=== PATIENT | female | born 1960 | race Hispanic/Latino ===

== ENCOUNTER 2024-08-28 21:57 | Inpatient (IN) | payer BC ==
[~2024-08-28] VITALS: Ht 154.9 cm; Wt 58.1 kg
--- NOTE | 2024-08-28 22:21 | ERN ---
General Chief Complaint: Chest Pain Stated Complaint: SOB,CHEST PAINS,VOMITTING,NUMBNESS Time Seen by MD: 21:57 Source: patient History of Present Illness Initial Comments Patient is a 64-year-old female recently diagnosed with the flu. She states he is coming in because she was having shortness of breath chest pressure began shortly after starting her Tamiflu. Patient also states that she has had fever and chills in his here for further evaluation. Allergies: Coded Allergies: No Known Allergies (Unverified Allergy, Unknown, 08/28/24) Past Medical History Past Medical History: High Cholesterol, Hypertension Past Surgical History: Hysterectomy, Cholecystectomy ROS Dictation CONSTITUTIONAL: No chills, no fever, no weakness, no diaphoresis, no malaise. HEAD/FACE: No signs of trauma. EENT: No eye pain, no blurred vision, no tearing, no double vision, no ear pain, no ear discharge, no nose pain, no nasal congestion, no throat pain, no throat swelling, no mouth pain. RESPIRATORY: cough, no orthopnea, SOB, no stridor, no wheezing. CARDIOVASCULAR: No chest pain, no edema, no palpitations, no syncope. GASTROINTESTINAL/ABDOMINAL: No abdominal pain, no constipation, no diarrhea, no nausea, no vomiting. GENITOURINARY: No abnormal discharge, no dysuria, no frequent urination, no hematuria. No complaints of pain in the genitals. MUSCULOSKELETAL: No back pain, no gout, no joint pain, no joint swelling, no muscle pain, no muscle stiffness, no neck pain. INTEGUMENTARY: No change in color, no change in hair/nails, no dryness, no lesion, no lumps, no rash. NEUROLOGICAL/PSYCH: No anxiety, not depressed, no emotional problem, no headache, no numbness, no pre-existing deficit, no history of seizures, no tremors, no weakness. HEMATOLOGIC/LYMPHATIC: Not anemic, no history of blood clots, no apparent bleeding, no bruising, glands not swollen. All Systems Negative, Except as Noted. Physical Exam Physical Exam Dictation VITAL SIGNS: Reviewed. GENERAL APPEARANCE: Alert, oriented x3, no acute distress, obese. HEAD AND FACE: Non-traumatic. EYES: PERRL, pink conjunctivas, eyelid no trauma, anterior chamber clear. EARS: Pinnas intact and no signs of trauma or erythema. Ear canals clear and no discharge. TMs no erythema. NOSE: No discharge, no bleeding. OROPHARYNX: Mouth normal, teeth no caries, tongue pink. Pharynx clear, no erythema. Tonsils no exudates, no abscesses noted. Mucous membrane moist. NECK: Supple, non-tender, no thyromegaly, no masses, no JVD, no bruits. BREAST: Deferred. CHEST: No tenderness, no crepitus, no paradoxical movement, no retractions. LUNGS: Clear, well-ventilated, symmetric, no rales, no wheezing, no rhonchi, no stridor, good breath sounds bilaterally. HEART: Regular rate, regular rhythm, no murmur, no gallops. VASCULAR: No peripheral edema. ABDOMEN: Soft, positive bowel sounds, nondistended, no guarding, nontender, no rebound, no masses no hepatomegaly, no splenomegaly, no Carrera's sign, no hernias. RECTAL: Deferred. GENITAL: Deferred. NEUROLOGICAL: Normal speech, gross motor function intact, gross sensory function intact. MUSCULOSKELETAL: Neck nontender, full range of motion, back nontender, full range of motion. EXTREMITIES: Nontender, full range of motion. SKIN: Color pink, dry, no turgor, no rash, no lacerations, no abrasions, no contusions. LYMPHATICS: Deferred. Results Laboratory and Microbiology Lab and Micro Result Laboratory Tests Test 08/28/24 22:51 08/28/24 22:52 08/28/24 23:48 White Blood Count 7.9 K/uL (4.8-10.8) Red Blood Count 5.43 MIL/uL (4.00-5.50) Hemoglobin 14.4 g/dL (12.0-16.0) Hematocrit 43.8 % (36-48) Mean Corpuscular Volume 80.7 fL (79-99) Mean Corpuscular Hemoglobin 26.5 pg (27.0-33.0) L Mean Corpuscular Hemoglobin Concent 32.9 g/dL (32.0-36.0) Red Cell Distribution Width 13.2 % (11.0-15.5) Platelet Count 363 K/uL (130-400) Mean Platelet Volume 9.0 fL (7.5-10.5) Immature Granulocyte % (Auto) 0.3 % (0-1) Neutrophils (%) (Auto) 58.1 % (40.0-77.0) Lymphocytes (%) (Auto) 28.7 % (21.0-51.0) Monocytes (%) (Auto) 12.0 % (3.0-13.0) Eosinophils (%) (Auto) 0.4 % (0.0-8.0) Basophils (%) (Auto) 0.5 % (0.0-5.0) Neutrophils # (Auto) 4.6 K/uL (1.8-7.7) Lymphocytes # (Auto) 2.3 K/uL (1.0-4.8) Monocytes # (Auto) 1.0 K/uL (0.1-1.0) Eosinophils # (Auto) 0.03 K/uL (0.00-0.70) Basophils # (Auto) 0.04 K/uL (0.00-0.20) Absolute Immature Granulocyte (auto 0.02 K/uL (0-1) Nucleated Red Blood Cells 0.0 % (0.0-0.19) Prothrombin Time 10.2 SEC (9.6-11.6) Prothromb Time International Ratio <= 0.93 (0.85-1.15) Activated Partial Thromboplast Time 24.8 SEC (26.3-35.5) L Sodium Level 135 mmol/L (136-145) L Potassium Level 3.5 mmol/L (3.5-5.1) Chloride Level 93 mmol/L (101-111) L Carbon Dioxide Level 30 mmol/L (21-32) Blood Urea Nitrogen 30 mg/dL (7-18) H Creatinine 1.5 mg/dL (0.5-1.0) H Glomerular Filtration Rate Calc 39 mL/min (>90) Random Glucose 115 mg/dL (70-105) H Total Calcium 10.2 mg/dL (8.5-10.1) H Magnesium Level 1.80 mg/dL (1.80-2.40) Total Creatine Kinase 58 U/L (21-232) Troponin I High Sensitivity 239 ng/L (4-50) *H 307 ng/L (4-50) *H B-Type Natriuretic Peptide 8 pg/mL (0-100) Urine Color YELLOW (YELLOW) Urine Appearance CLOUDY (CLEAR) H Urine pH 5.5 (5.0-8.0) Urine Specific [place] 1.027 (1.001-1.031) Urine Protein 20 mg/dL (NEGATIVE) H Urine Glucose (UA) NEGATIVE mg/dL (NEGATIVE) Urine Ketones NEGATIVE mg/dL (NEGATIVE) Urine Occult Blood NEGATIVE (NEGATIVE) Urine Nitrate NEGATIVE (NEGATIVE) Urine Bilirubin NEGATIVE mg/dL (NEGATIVE) Urine Urobilinogen 0.2 mg/dL (0.2-1.0) Urine Leukocyte Esterase 500 Heidi/uL (NEGATIVE) H Urine RBC 6-10 /HPF (0-1) H Urine WBC 51-100 /HPF (0-1) H Urine Squamous Epithelial Cells Rare /HPF (0-2) Urine Bacteria Rare /HPF (None Seen) Urine Hyaline Casts 6-10 /LPF (0-1 /LPF) H Urine Opiates Screen NEGATIVE (NEGATIVE) Urine Barbiturates Screen NEGATIVE (NEGATIVE) Urine Phencyclidine Screen NEGATIVE (NEGATIVE) Urine Amphetamines Screen NEGATIVE (NEGATIVE) Urine Benzodiazepines Screen NEGATIVE (NEGATIVE) Urine Cocaine Screen NEGATIVE (NEGATIVE) Urine Marijuana (THC) Screen NEGATIVE (NEGATIVE) Labs Reviewed?: Yes EKG/XRAY/US/CT/MRI EKG Comment 08/28/2024 time 10:03 p.m. Ventricular rate 96 MA [address] wave elevation or depression X-RAY Comment CHEST X-RAY NAD MDM MDM: Differential diagnosis: NSTEMI, ACS, UTI, INFLUENZA, Rationale: Tests considered and ordered secondary to shared decision making include: labs, ECG and radiology Previous outside records reviewed: Old ER visits. Risk of complication and/or morbidity or mortality of patient management: None Medications-Per medication reconciliation Need for hospitalization: Patient does meet criteria for hospitalization. Need for emergency major/minor surgery: No There are no social concerns with this patient. Prescription drug management Prescriptions will include symptomatic care Patient's prior external medical records from other ER visits were reviewed by me as indicated. Prior testing and results from previous visits were reviewed. Prior tests were taken into account with medical decision making and resource utilization, independent historian/historians were used to obtain complete medical history. I independently interpreted the test that were performed, results were reviewed by me and considered findings on radiology if ordered. Medical management and examination interpretation discussions were had by me with other qualified healthcare professionals as indicated for the patient's care. PATIENT WILL BE ADMITTED UNDER THE CARE OF DR. TRUONG FOR ONGOING MANAGEMENT OF PATIENT IS A CAME IN COMPLAINING OF SHORTNESS OF BREATH CHEST DISCOMFORT NAUSEA AND VOMITING. PATIENT HAS BEEN ON OZEMPIC HAS NOT TAKEN IT FOR FOUR MONTHS AND DECIDED TO TAKE IT AGAIN SHE STATES HE CHANGED HER DOSAGE .2 SHE NOTICED A LOT OF SYMPTOMS WITH THAT. ALONG WITH THIS PATIENT WAS DIAGNOSED WITH INFLUENZA TODAY. LABORATORY WORKUP ELEVATED TROPONIN. PATIENT WILL BE ADMITTED FOR ONGOING MANAGEMENT. ED Course Orders Procedure Category Date Status Time Cbc With Differential LAB 08/28/24 Complete 22:08 Prothrombin Time With LAB 08/28/24 Complete INR 22:08 B-Type Natriuretic LAB 08/28/24 Complete Peptide 22:08 Chest 1vw RAD 08/28/24 Taken 22:08 12 Lead Ekg Tracing- EKG 08/28/24 Complete Technical 22:08 Lactated Ringers PHA 08/28/24 Complete 1000ml (Lactated 22:30 Magnesium LAB 08/28/24 Complete 22:08 Creatine Kinase, Total LAB 08/28/24 Complete 22:08 Troponin I High LAB 08/28/24 Complete Sensitivity 22:08 Urinalysis Profile LAB 08/28/24 Complete 22:08 Partial LAB 08/28/24 Complete Thromboplastin Time 22:08 Basic Metabolic Panel LAB 08/28/24 Complete 22:08 Drug Screen Urine LAB 08/28/24 Complete 22:08 Culture Urine AKTHE 08/28/24 In Process 23:41 Aspirin 325mg Ec Tab PHA 08/29/24 Complete (Aspirin 325mg Ec T 00:00 Nitroglycerin 0.4mg PHA 08/29/24 In Process Sl Tab (Nitrostat) 00:00 Troponin I High LAB 08/28/24 Complete Sensitivity 23:44 Ondansetron 4mg Inj PHA 08/29/24 In Process (Zofran 4mg Inj) 01:00 Current Medications Medications (Trade) Dose Ordered Sig/Becky Route PRN Reason Start Time Stop Time Status Last Admin Dose Admin Aspirin (Aspirin 325mg Ec Tab) 325 mg ONCE ONCE PO 08/29/24 00:00 08/29/24 00:01 DC 08/29/24 00:33 Lactated Ringer's 1,000 ml @ 0 mls/hr ONCE ONCE IV 08/28/24 22:30 08/28/24 22:31 DC 08/29/24 00:32 Nitroglycerin (Nitrostat) 0.4 mg Q5M PRN SL CHEST PAIN 08/29/24 00:00 08/29/24 00:36 Ondansetron HCl (zoFRAN 4MG INJ) 4 mg ONCE ONCE IVP 08/29/24 01:00 08/29/24 01:01 Vital Signs Date Time Temp Pulse Resp B/P (MAP) Pulse Ox O2 Delivery O2 Flow Rate FiO2 08/28/24 21:57 97.9 110 20 147/98 100 Room Air Critical Care Note Comments CRITICAL CARE PROCEDURE NOTE AUTHORIZED AND PERFORMED BY: ME TOTAL CRITICAL CARE TIME: APPROXIMATELY 36 MINUTES DUE TO A HIGH PROBABILITY OF CLINICALLY SIGNIFICANT, LIFE THREATENING DETERIORATION, THE PATIENT REQUIRED MY HIGHEST LEVEL OF PREPAREDNESS TO INTERVENE EMERGENTLY AND I PERSONALLY SPENT THIS CRITICAL CARE TIME DIRECTLY AND PERSONALLY MANAGING THE PATIENT. THIS CRITICAL CARE TIME INCLUDED OBTAINING A HISTORY; EXAMINING THE PATIENT; PULSE OXIMETRY; ORDERING AND REVIEW OF STUDIES; ARRANGING URGENT TREATMENT WITH DEVELOPMENT OF A MANAGEMENT PLAN; EVALUATION OF PATIENT'S RESPONSE TO TREATMENT; FREQUENT REASSESSMENT; AND, DISCUSSIONS WITH OTHER PROVIDERS. THIS CRITICAL CARE TIME WAS PERFORMED TO ASSESS AND MANAGE THE HIGH PROBABILITY OF IMMINENT, LIFE-THREATENING DETERIORATION THAT COULD RESULT IN MULTI-ORGAN FAILURE. IT WAS EXCLUSIVE OF SEPARATELY BILLABLE PROCEDURES AND TREATING OTHER PATIENTS AND TEACHING TIME. PLEASE SEE MDM SECTION AND THE REST OF THE NOTE FOR FURTHER INFORMATION ON PATIENT ASSESSMENT AND TREATMENT. DX & DISP Disposition: Inpatient Decision to Admit Time: 00:44 Departure Impression: Primary Impression: UTI (urinary tract infection) Additional Impressions: Influenza, NSTEMI (non-ST elevated myocardial infarction), Nausea & vomiting Condition: Stable Referrals: SELF,REFERRAL (PCP) RAEANN TRUONG MD, ISABEL MD Aug 28, 2024 22:21
--- NOTE | 2024-08-28 22:29 | EKG ---
[facility] Test Date: 2024-08-28 Test Time: 22:03:22 Pat Name: TONI ORTIZ Department: ED Room: 202 Gender: F Black Pickler: [id number] : 1960 Requested By: DEANA QUEZADA Order Number: [id number] Reading MD: Hardeep Plascencia Measurements Intervals [place] Rate: 96 P: 189 [place]: 60 QRS: 75 QRSD: 86 T: 30 QT: 428 QTc: 542 Interpretive Statements Sinus or ectopic atrial rhythm Low voltage, precordial leads Electronically Signed On 08-29-2024 12:16:13 ADVERTISING ASSISTANT MANAGER by Hardeep Plascencia Please click the below link to view image of tracing.
[2024-08-28 23:00] LABS: BASOPHILS # (AUTO) 0.04 K/uL (0.00-0.20); BASOPHILS % (AUTO) 0.5 % (0.0-5.0); EOSINOPHILS # (AUTO) 0.03 K/uL (0.00-0.70); EOSINOPHILS % (AUTO) 0.4 % (0.0-8.0); HEMATOCRIT 43.8 % (36-48); IMMATURE GRANULOCYTE ABSOLUTE 0.02 K/uL (0-1); LYMPHOCYTES # (AUTO) 2.3 K/uL (1.0-4.8); LYMPHOCYTES % (AUTO) 28.7 % (21.0-51.0); MEAN CORPUSCULAR HEMOGLOBIN 26.5 pg (27.0-33.0); MEAN CORPUSCULAR HGB CONC 32.9 g/dL (32.0-36.0); MEAN CORPUSCULAR VOLUME 80.7 fL (79-99); NEUTROPHILS # (AUTO) 4.6 K/uL (1.8-7.7); NEUTROPHILS % (AUTO) 58.1 % (40.0-77.0); PLATELET COUNT (AUTO) 363 K/uL (130-400); RED BLOOD CELL COUNT(AUTO) 5.43 MIL/uL (4.00-5.50); RED CELL DISTRIBUTION WIDTH 13.2 % (11.0-15.5); WHITE BLOOD COUNT (AUTO) 7.9 K/uL (4.8-10.8)
[2024-08-28 23:08] LABS: CREATININE 1.5 mg/dL (0.5-1.0); POTASSIUM 3.5 mmol/L (3.5-5.1)
[2024-08-28 23:13] LABS: MAGNESIUM 1.8 mg/dL (1.80-2.40)
[2024-08-28 23:14] LABS: INR <= 0.93 (0.85-1.15); PROTHROMBIN TIME 10.2 SEC (9.6-11.6)
[2024-08-28 23:15] LABS: PARTIAL THROMBOPLASTIN TIME 24.8 SEC (26.3-35.5)
[2024-08-28 23:19] LABS: APPEARANCE,URINE CLOUDY (CLEAR); BILIRUBIN,URINE NEGATIVE (NEGATIVE); COLOR,URINE YELLOW (YELLOW); GLUCOSE, URINE (UA) NEGATIVE (NEGATIVE); KETONES,URINE NEGATIVE (NEGATIVE); LEUKOCYTE ESTERASE ,URINE 500 Leu/uL (NEGATIVE); NITRATE,URINE NEGATIVE (NEGATIVE); OCCULT BLOOD,URINE NEGATIVE (NEGATIVE); PH,URINE 5.5 (5.0-8.0); PROTEIN,URINE 20 mg/dL (NEGATIVE); UROBILINOGEN,URINE 0.2 mg/dL (0.2-1.0)
[2024-08-28 23:38] LABS: AMPHET/METH SCREEN,URINE NEGATIVE (NEGATIVE); BARBITURATE SCREEN, URINE NEGATIVE (NEGATIVE); BENZODIAZEPINES SCREEN,URINE NEGATIVE (NEGATIVE); CANNABINOID SCREEN,URINE NEGATIVE (NEGATIVE); COCAINE SCREEN,URINE NEGATIVE (NEGATIVE); OPIATE SCREEN,URINE NEGATIVE (NEGATIVE); PHENCYCLIDINE SCREEN,URINE NEGATIVE (NEGATIVE)
[2024-08-28 23:41] LABS: ADD UA MICROSCOPIC YES
[2024-08-28 23:43] LABS: B-TYPE NATRIURETIC PEPTIDE 8 pg/mL (0-100)
--- NOTE | 2024-08-28 23:58 | NUR ---
PT BROUGHT TO ROOM.
[2024-08-29] VITALS (15 sets, daily range): BP systolic 96–117; BP diastolic 60–68; PULSE 67–87; RESP 16–22; TEMP 97.6–98.6; O2SAT 96–100
[2024-08-29 00:07] LABS: WBC,URINE 51-100 /HPF (0-1)
[2024-08-29 00:08] LABS: BACTERIA,URINE Rare /HPF (None Seen); MUCUS,URINE Rare LPF (None Seen); SQUAMOUS EPITHELIAL CELL,UR Rare /HPF (0-2)
[2024-08-29] MEDS: LACTATED RINGERS 1000ML 1,000 ML IV ONE (00:32)
[2024-08-29] MEDS: ASPIRIN 325MG EC TAB PO ONE (00:33)
[2024-08-29] MEDS: NITROGLYCERIN 0.4 MG SL TAB SL PRN (00:36)
[2024-08-29] MEDS: ondanSETRON 4MG INJ IVP ONE (00:49)
[2024-08-29] MEDS: cefTRIAXone 1G VIAL IVPB ONE (02:03)
[2024-08-29] MEDS: cefTRIAXone 1G VIAL IVPB SCH (02:03)
[2024-08-29 07:19] LABS: BASOPHILS # (AUTO) 0.03 K/uL (0.00-0.20); BASOPHILS % (AUTO) 0.5 % (0.0-5.0); EOSINOPHILS # (AUTO) 0.04 K/uL (0.00-0.70); EOSINOPHILS % (AUTO) 0.7 % (0.0-8.0); HEMATOCRIT 37.4 % (36-48); IMMATURE GRANULOCYTE ABSOLUTE 0.02 K/uL (0-1); LYMPHOCYTES # (AUTO) 1.5 K/uL (1.0-4.8); LYMPHOCYTES % (AUTO) 24.1 % (21.0-51.0); MEAN CORPUSCULAR HEMOGLOBIN 27.5 pg (27.0-33.0); MEAN CORPUSCULAR HGB CONC 33.7 g/dL (32.0-36.0); MEAN CORPUSCULAR VOLUME 81.7 fL (79-99); MONOCYTES # (AUTO) 0.8 K/uL (0.1-1.0); MONOCYTES % (AUTO) 13.4 % (3.0-13.0); NEUTROPHILS # (AUTO) 3.7 K/uL (1.8-7.7); PLATELET COUNT (AUTO) 292 K/uL (130-400); RED BLOOD CELL COUNT(AUTO) 4.58 MIL/uL (4.00-5.50); RED CELL DISTRIBUTION WIDTH 13.1 % (11.0-15.5); WHITE BLOOD COUNT (AUTO) 6.1 K/uL (4.8-10.8)
[2024-08-29 07:37] LABS: ALBUMIN 3.2 g/dL (3.5-5.0); BILIRUBIN,TOTAL 0.4 mg/dL (0.2-1.0); CREATININE 1.1 mg/dL (0.5-1.0); POTASSIUM 3.3 mmol/L (3.5-5.1); TOTAL PROTEIN, SERUM 6.7 g/dL (6.0-8.3)
[2024-08-29] MEDS: IpraTROPium 0.5 MG/2.5 ML INH IH SCH (07:57)
--- NOTE | 2024-08-29 08:24 | HMCIMG ---
PORTABLE CHEST RADIOGRAPH INDICATION: cp COMPARISON: None FINDINGS: Heart size is normal. The pulmonary vascularity and nadeem appear normal. No abnormal pulmonary parenchymal opacity or consolidation identified. No significant pleural effusion noted. No pneumothorax detected. IMPRESSION: No radiographic evidence for any acute cardiopulmonary process.
[2024-08-29] MEDS: Solu-medROL 125MG VIAL IVP SCH (10:12)
[2024-08-29] MEDS: OSELTAMIVIR PHOSPHATE 75 MG CAP PO SCH (10:12)
[2024-08-29] MEDS: ENOXAPARIN SODIUM 80 MG/0.8 ML SQ SCH (10:13)
--- NOTE | 2024-08-29 10:15 | NUR ---
DR. TRUONG HERE AND ORDERS FOR CARIOLOGY CONSULT NOTED AND WILL NOTIFY DR. VINCENT.
[2024-08-29] MEDS ORDERED: OMEP40CA21 PO (10:25)
[2024-08-29] MEDS ORDERED: AMLO-433 PO (10:25)
--- NOTE | 2024-08-29 11:08 | NUR ---
DR. VINCENT HERE AND SPOKE WITH PATIENT, ADVISED PT THAT SHE WOULD NEED A HEART CATH AND PT WANTS TO WAIT FOR A FEW DAYS. DR. VINCENT ADVISED PT THAT SHE WOULD HAVE TO HAVE A HEART CATH IF SHE WOULD GET CHEST PAIN AGAIN. AN ECHO HAS BEEN ORDERED.
--- NOTE | 2024-08-29 11:44 | CONS ---
[facility] Cardiology Consultation Note Cardiology consultation August 29, 2024 Chief complaint: This is a 64-year-old female who presented with nausea vomiting and chest pain. She has had elevated troponins consistent with a non ST elevation myocardial infarction and has tested influenza positive. History of present illness: The patient had developed nausea and vomiting at home. She developed retrosternal tightness and decided to come to the emergency room. Pain lasted for about 2 hours and was relieved with sublingual nitroglycerin in the emergency room. No EKGs available on the chart for my review. The EKG computer report says sinus rhythm with anterior wall LA. I will try to locate the EKG for review. Troponins have been elevated at 239, 307 and 333. She is pain-free at the present time. Past medical history: She has a history of hypertension and dyslipidemia. She has a history of diabetes mellitus type 2 which has been diet controlled. She states her last hemoglobin A1c was 5.7. There was no history of rheumatic fever heart murmur previous myocardial infarction CVAs ulcers phlebitis thyroid disease kidney or liver disease. Review of systems: No recent syncope PND orthopnea palpitations or pedal edema. No fevers sweats or chills. No hemoptysis hematemesis or melena. Allergies: No known allergies Social history: She is a nonsmoker Family history: Father had a myocardial infarction in his 40s and subsequently developed a severe stroke. Mother has a history of myocardial infarction. Surgical history: She has a history of cervical cancer and is status post a previous hysterectomy. She is status post previous cholecystectomy. Physical exam: Blood pressure 110/60 heart rate in the 70s and the patient is afebrile. There was no elevation of the jugular venous pressure no bruits S1 normal S2 physiologically split. No murmur appreciable. Lungs are clear to auscultation. No murmur was elicited with Valsalva maneuver. Abdomen is soft. Extremities show no edema. She is alert and oriented. Posterior tibial pulses are plus one bilaterally. Laboratory studies: Potassium 3.3 BUN 26 creatinine 1.1 down from 1.5 on admission. Estimated GFR of 56. White count is 6.1 hemoglobin 12.6 platelet count [id number]. INR of 0.93. Chest x-ray: Heart size is normal. No effusions or infiltrates are noted. There was no widening of the mediastinum. No pneumothorax. Pulmonary vascular pattern appears normal. Assessment: 1. Non ST-elevation myocardial infarction 2. Influenza status is reported by the nursing staff has positive however I can not find the result on the EMR 3. Diabetes mellitus type 2 diet controlled 4. Hypertension 5. Dyslipidemia Plan: Plan is to initiate aspirin clopidogrel heparin treatment protocol beta abdias and statin. I have offered the patient left heart catheterization and possible PCI today. She has concerns about having the procedure done in the setting of influenza and would prefer to wait for a few days. She is aware that if she has any recurrent chest pain that we will need to proceed emergently. A 2D echo will be used to assess LV function. As I can not locate her EKG a 12 lead EKGs being ordered today. 6. Strong family history of atherosclerotic heart disease MONSERRAT VINCENT MD Aug 29, 2024 11:44
[2024-08-29] MEDS: cloPIDOgrel 300MG TAB PO ONE (12:00)
--- NOTE | 2024-08-29 14:18 | HP ---
HISTORY OF PRESENT ILLNESS: The patient examined at bedside, came to the emergency room complaining of shortness of breath and chest pressure that began shortly after restarting her Tamiflu and having some nausea with vomiting. The patient also referring fever and chills. PAST MEDICAL HISTORY: Hypertension, dyslipidemia. ALLERGIES: No known drug allergies. REVIEW OF SYSTEMS: Denies any seizure loss of consciousness, fever and chills as mentioned above. No malaise. HEENT, denies any diplopia, dysarthria or dysphonia. No sore throat. Lungs, no wheezes, no rhonchi. There is some persistent cough and shortness of breath. Chest pain as mentioned above, mostly related to post-Tamiflu injection. No palpitations. No dizziness. No nausea, vomiting, diarrhea. No dysuria, urgency, frequency. No rashes, petechia or ecchymoses. No hallucinations, delusions. No suicidal ideation. PHYSICAL EXAMINATION: GENERAL: She is currently awake, alert, oriented in person, time, and place, not in distress. VITAL SIGNS: Blood pressure 104/50, pulse 74, respiratory rate 16. HEENT: Normocephalic, atraumatic. LUNGS: Decreased breath sounds bilaterally. No inspiratory wet rales. HEART: S1, S2 are distant. ABDOMEN: Soft, nontender, no masses. EXTREMITIES: No clubbing or cyanosis. No edema. LABORATORY DATA: WBC count 6.1, hemoglobin 12.6, platelets 292. Sodium 136, potassium 3.3, BUN 26, creatinine 1.1. Troponin level was 239 on admission, this morning was 333. Urine for substance of abuse negative. Urinalysis positive for leukocyte esterase and wbc's count positive 51 to 100. ASSESSMENT AND PLAN: * Chest pain with elevated cardiac enzymes and EKG that shows no ST elevation myocardial infarction. She will be started standard protocol for acute coronary syndrome with aspirin, Plavix, Lovenox. * Influenza. Continue with Tamiflu. * Urinary tract infection. Continue with Rocephin 1 gram IV daily. Continue with Solu-Medrol, continue Tamiflu. * Hypertension. Continue current medications. Follow up in a.m. with results of tests. Cardiology consultation will be made. DOS: 08/29/2024 TID: [id number] RECEIPT: [id number] MTDD
[2024-08-29] MEDS: metoPROLOL tartRATE 25 MG TAB PO ONE (15:50)
[2024-08-29] MEDS: cloPIDOgrel 75MG TAB ONE (15:51)
--- NOTE | 2024-08-29 16:40 | HMCSR ---
APPROVED REPORT EXAM: Two-dimensional and M-mode echocardiogram with Doppler and color Doppler. INDICATION ICD: Elevated troponin 2D Dimensions RVDd4.1 cmLVOT diam2.0 (1.8-2.4cm)LVED Vol(simp.)93.9 mL LVES Vol(simp.)32.5 mL LVEF(%, simp.)65 % LA ESV INDEX (4CH)24.00 mL/m2 LA ESV INDEX (2CH)24.00 mL/m2 LA ESV INDEX (BP)24.10 mL/m2 Deformation Strain Apical 424.0 % Apical 225.0 % Apical 325.0 % Global Aewkrk81.0 % M-Mode Dimensions EPSS0.9 cm LA (MM)4.3 (1.6-4.0cm) Ao Root(MM)2.7 (2.0-3.7cm) Aortic Valve AoV VTI0.3 mAo Mean GR4.0 mmHgLVOT VTI0.16 m NASIM (VMAX)1.9 cm2AVA (VTI) 1.9 cm2 Mitral Valve MV E Vmax65.0 cm/sDECEL Ywtx403 ms MV A Vmax80.0 cm/sP 1/2 T48 ms E/A ratio0.8MVA (PHT)4.6 cm2 TDI E/E' Pxuyxg45.5E/E' Lateral9.2 Medial E' Peak V4.80 cm/sLateral E' Peak V7.10 cm/s Pulmonary Valve PV Vmax1.1 m/s PV Peak GR4.8 mmHg Tricuspid Valve RAP (EST) 3 mmHgRVSP3.0 mmHg Left Ventricle The left ventricle is normal size. Normal There is normal LV segmental wall motion.GLS -25.0%. There is normal left ventricular wall thickness. LVEF is 60-65%. Stage I diastolic dysfunction. Right Ventricle The right ventricle is normal size. The right ventricular systolic function is normal. Atria The left atrium size is normal. The right atrium size is normal. Aortic Valve The aortic valve is normal in structure. No aortic regurgitation is present. There is no aortic valvu lar stenosis. Mitral Valve The mitral valve is normal in structure. There is no mitral valve regurgitation noted. There is no mi tral valve stenosis. Tricuspid Valve The tricuspid valve is normal in structure. There is no tricuspid valve regurgitation noted. Pulmonic Valve The pulmonary valve is normal in structure. There is no pulmonic valvular regurgitation. Great Vessels The aortic root is normal in size. The IVC is normal in size and collapses >50% with inspiration. Pericardium There is no pericardial effusion. Other Information Quality : Adequate Conclusion LVEF is 60-65%. Stage I diastolic dysfunction.
--- NOTE | 2024-08-29 16:57 | NUR ---
INITIAL/DCP HOME Met w pt and family this afternoon to discuss dcp. Pt admitted w NSTEM/Influenza. EC is spouse Jaswinder Winkler [phone]. PCP Dr Camejo. Preferred pharmacy: [facility] on [address]. Prior to admission she was living at home w spouse. She is independent w ambulation and ADLs. 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 Discharge goal is to return home. Addendum: 08/29/24 at 1659 by CATE DAVEY CM Amended: Links added.
--- NOTE | 2024-08-29 19:46 | EKG ---
[facility] Test Date: 2024-08-29 Test Time: 17:21:22 Pat Name: TONI ORTIZ Department: [facility] Room: 202 1 Gender: F Ada Accommodation Consultant: ELVIA : 1960 Requested By: HARDEEP VINCENT Order Number: [id number] Reading MD: Hardeep Vincent Measurements Intervals [place] Rate: 82 P: 0 HI: 162 QRS: -36 QRSD: 96 T: -35 QT: 388 QTc: 453 Interpretive Statements Normal sinus rhythm Left axis deviation RSR' or QR pattern in V1 suggests right ventricular conduction delay New T inversions inferiorly, possible ischemia Compared to ECG 08/28/2024 22:03:22 Left-axis deviation now present RSR' in V1 or V2 now present Ectopic atrial rhythm no longer present Electronically Signed On 08-30-2024 10:12:00 MEDIA DEVELOPER by Hardeep Vincent Please click the below link to view image of tracing.
[2024-08-29] MEDS: metoPROLOL tartRATE 25 MG TAB PO SCH (20:47)
[2024-08-29] MEDS: atorVAStatin 40 MG TABLET PO SCH (20:47)
[2024-08-29] MEDS: acetaMINOPHEN 325 MG TAB PO PRN (21:21)
[2024-08-30] VITALS (13 sets, daily range): BP systolic 98–115; BP diastolic 55–78; PULSE 61–78; RESP 16–18; TEMP 97.9–98.8; O2SAT 96–100
[2024-08-30 05:12] LABS: HEMATOCRIT 38.5 % (36-48); MEAN CORPUSCULAR HEMOGLOBIN 27.2 pg (27.0-33.0); MEAN CORPUSCULAR HGB CONC 33.2 g/dL (32.0-36.0); MEAN CORPUSCULAR VOLUME 81.7 fL (79-99); PLATELET COUNT (AUTO) 322 K/uL (130-400); RED BLOOD CELL COUNT(AUTO) 4.71 MIL/uL (4.00-5.50); RED CELL DISTRIBUTION WIDTH 12.9 % (11.0-15.5); WHITE BLOOD COUNT (AUTO) 2.8 K/uL (4.8-10.8)
[2024-08-30 05:36] LABS: POTASSIUM 3.4 mmol/L (3.5-5.1)
[2024-08-30 05:37] LABS: ALBUMIN 3.2 g/dL (3.5-5.0); BILIRUBIN,TOTAL 0.4 mg/dL (0.2-1.0); TOTAL PROTEIN, SERUM 7.3 g/dL (6.0-8.3)
[2024-08-30 06:10] LABS: BAND NEUTROPHILS % (MANUAL) 1 % (0-2); LYMPHOCYTES % (MANUAL) 19 % (22-44); MONOCYTES % (MANUAL) 3 % (2-9); SEGMENTED NEUTROPHILS % 77 % (40-70); TOTAL CELLS COUNTED 100
[2024-08-30 06:11] LABS: MAN.DIFF COMMENT-IMPRESSION MANUAL DIFFERENTIAL; PLATELET MORPHOLOGY COMMENT ADEQUATE; WBC MORPHOLOGY SMUDGE CELLS 1+
[2024-08-30] MEDS: hydroCHLOROthiazide 25 MG TABLET PO SCH (09:00)
[2024-08-30] MEDS ORDERED: amLODIPine 5 MG TAB PO SCH (09:00)
[2024-08-30] MEDS: LoSARTan 100 MG TABLET PO SCH (09:00)
[2024-08-30] MEDS: ASPIRIN 81MG CHEW TAB PO SCH (09:05)
[2024-08-30] MEDS: cloPIDOgrel 75MG TAB PO SCH (09:05)
[2024-08-30] MEDS: PANTOPrazole 40 MG TAB DR PO SCH (09:05)
--- NOTE | 2024-08-30 09:06 | PN ---
This is a 64-year-old female with a history of hypertension, hyperlipidemia and type 2 diabetes mellitus. She was admitted 08/29/2024 secondary to a non-STEMI in the setting influenza. Her troponin trend is as follows: 239 > 307 > 333 > 331 > 284.7. She underwent echocardiogram 08/29/2024 which reveals an ejection fraction of 60-65% with stage I diastolic dysfunction and normal-sized left atrium. She is currently in sinus rhythm with heart rates in the 60s to 70s. Her most recent blood pressure is 102/61. She denies chest pain, nausea and vomiting. She also denies cough and congestion. Assessment: 1. Non-STEMI in the setting of influenza. 2. Hypertension. 3. Hyperlipidemia. 4. Type 2 diabetes mellitus, controlled with diet. Plan: 1. She was admitted secondary to a non-STEMI with complaints of chest pain, nausea and vomiting. She has been minimally symptomatic for the influenza. Left heart catheterization was discussed with her on admission yesterday, however she wished to defer the procedure due to the influenza. We discussed left heart catheterization this morning and she is ready to proceed. 2. Continue aspirin 81 mg once daily, atorvastatin 40 mg once daily and c lopidogrel 75 mg once daily. 3. Continue Lovenox 70 mg every 12 hours. Lovenox will be held tomorrow morning prior to the procedure. 4. Continue metoprolol tartrate 25 mg twice daily. We will hold losartan and hydrochlorothiazide due to low blood pressure readings this morning. 5. Plan for left heart catheterization tomorrow morning by Dr. Plascencia. Vitals/Labs Vital Signs Date Time Temp Pulse Resp B/P (MAP) Pulse Ox O2 Delivery O2 Flow Rate FiO2 08/30/24 08:00 98.6 72 18 102/61 99 Room Air 21 08/29/24 20:00 0 Laboratory Tests 08/30/24 04:42 ROMELIA DUDLEY Aug 30, 2024 09:06
--- NOTE | 2024-08-30 10:42 | PN ---
SUBJECTIVE: The patient examined at bedside, the patient was seen by Cardiology and scheduled to have a cardiac catheterization tomorrow. Had an echocardiogram. Continue with treatment for flu. Continue with aspirin, Plavix, Lovenox. She is also on treatment for COPD with bronchodilators, steroids. OBJECTIVE: GENERAL: She is currently, awake, alert, oriented in person, time, and place, not in distress. Vital Signs: Blood pressure 102/61, pulse 72, respiratory rate 18. HEENT: Normocephalic, atraumatic. LUNGS: Decreased breath sounds bilaterally. HEART: S1, S2 are distant. ABDOMEN: Soft, nontender. EXTREMITIES: No clubbing, cyanosis. LABORATORY DATA: WBC count of 2.8, hemoglobin 12.8, platelets 322. Sodium 136, potassium 3.4, BUN 23, creatinine 1. Troponin level highest was 284, albumin 3.2. DIAGNOSTIC DATA: Echocardiogram reported ejection fraction 60-65%, no segmental wall motion abnormalities. No valvulopathy. No pericardial effusion. ASSESSMENT AND PLAN: * Influenza. Continue with Tamiflu. * Chronic obstructive pulmonary disease exacerbation. Continue bronchodilators, steroids, antibiotics. * Non-ST elevation myocardial infarction. Continue recommendations by Cardiology. Scheduled for cardiac catheterization tomorrow. * Hypertension. Continue current medications. * Dyslipidemia. Continue current medications. * Urinary tract infection. Continue with Rocephin. Follow up in a.m. with results. DOS: 08/30/2024 TID: [id number] RECEIPT: [id number] MTDD
[2024-08-30] MEDS ORDERED: IpraTROPium 0.5 MG/2.5 ML INH IH PRN (12:30)
[2024-08-31] VITALS (15 sets, daily range): BP systolic 102–149; BP diastolic 57–86; PULSE 58–77; RESP 16–20; TEMP 98.1–98.5; O2SAT 96–98
[2024-08-31 04:44] LABS: HEMATOCRIT 37.3 % (36-48); MEAN CORPUSCULAR HEMOGLOBIN 27.6 pg (27.0-33.0); MEAN CORPUSCULAR HGB CONC 33.8 g/dL (32.0-36.0); MEAN CORPUSCULAR VOLUME 81.6 fL (79-99); RED BLOOD CELL COUNT(AUTO) 4.57 MIL/uL (4.00-5.50); WHITE BLOOD COUNT (AUTO) 6.9 K/uL (4.8-10.8)
[2024-08-31 04:52] LABS: POTASSIUM 3.7 mmol/L (3.5-5.1)
[2024-08-31 04:57] LABS: INR <= 0.93 (0.85-1.15); PROTHROMBIN TIME 10.1 SEC (9.6-11.6)
[2024-08-31 04:58] LABS: PARTIAL THROMBOPLASTIN TIME 27.6 SEC (26.3-35.5)
--- NOTE | 2024-08-31 07:14 | PN ---
[facility] Cardiology Progress Note CARDIOLOGY PROGRESS NOTE AUGUST 31, 2024 Problems: 1. Non ST-elevation myocardial infarction 2. Influenza status is reported by the nursing staff has positive however I can not find the result on the EMR 3. Diabetes mellitus type 2 diet controlled 4. Hypertension 5. Dyslipidemia Blood pressure this morning is 115/60 heart rate is in the 60s the patient is afebrile. White count is 6.9 hemoglobin 12.6 platelet count [id number]. Potassium 3.7 BUN 26 creatinine 1.0. The patient continues on aspirin atorvastatin clopidogrel full-dose Lovenox hydrochlorothiazide losartan Solu-Medrol metoprolol tartrate and pantoprazole. Lovenox will be held this morning. The procedure has been reviewed with the patient and family. Risks benefits and alternatives has been reviewed and the patient request to proceed with left heart catheterization and possible PCI today. MONSERRAT VINCENT MD Aug 31, 2024 07:14
[2024-08-31] MEDS ORDERED: ENOXAPARIN SODIUM 60 MG/0.6 ML SQ SCH (09:00)
[2024-08-31] MEDS: Solu-medROL 40MG VIAL IVP SCH (10:43)
[2024-08-31] MEDS ORDERED: IOHEXOL 350 MG/ML 100ML INFUS..BTL IV ONE (14:04)
[2024-08-31] MEDS ORDERED: LIDOCAINE HCL-MPF 2% 5ML VIAL ONE (14:04)
[2024-08-31] MEDS ORDERED: FENTanyl CITRate PF 50 MCG/1 ML 2ML VIAL ONE (14:04)
[2024-08-31] MEDS ORDERED: MIDAZOLAM HCL 1 MG/ML 2ML VIAL ONE (14:04)
[2024-08-31] MEDS ORDERED: HEParin 10,000 UNIT/10ML (1,000 UNIT/ML) VIAL ONE (14:04)
[2024-08-31] MEDS ORDERED: HEParin-NS 1,000 UNIT/500 ML 1,000 ML IV ONE (14:05)
[2024-08-31] MEDS ORDERED: LIDOCAINE HCL 400MG/20ML VIAL ONE (14:05)
--- NOTE | 2024-08-31 14:39 | PRN ---
Cath Procedure Report CATH PROCEDURE REPORT CARDIAC CATHETERIZATION REPORT Date of Service: Aug 31, 2024 This patient had presented with a non ST elevation myocardial infarction in the setting of influenza. LV ejection fraction was 60-65% by echo. After informed consent she was prepped and draped in the usual fashion. She received a total of 15 cc of 2% xylocaine in the right inguinal area. She received 1 mg of Versed for conscious sedation. A six Moldovan sheath was introduced into the right femoral artery using modified Seldinger technique. Wen four right six Moldovan diagnostic catheter was advanced over guidewire to the aortic root. Wire was removed and catheter engaged into the tangirnaq right coronary artery which was visualized multiple planes. The catheter was removed and a Wen four left six Moldovan diagnostic catheter was then advanced over guidewire to the aortic root. Wire was removed and catheter engaged into the left main coronary artery. The left coronary system was visualized multiple planes the catheter was removed. Pigtail was then advanced over guidewire across the aortic valve. Wire was removed and hemodynamics measured. A pullback with continuous hemodynamic monitoring was performed and catheter was removed. A sheathogram was performed and six Moldovan Angio-Seal closure device applied. The entire procedure was well tolerated without complications. Findings: There is no evidence of aortic stenosis. Left ventricular end- diastolic pressure was normal at 9 mm Hg. The left main coronary artery is a long vessel free of obstruction gives rise to a LAD which is free of obstruction and extends around the apex of the heart. Distal 3rd of the LAD is a small caliber vessel of about 1 mm. The diagonal branches are free of obstruction. The circumflex artery is a nondominant vessel free of obstruction it gives rise to two large obtuse marginal arteries both free of obstruction. The right coronary artery is a right-dominant vessel and is free of obstruction gives rise to normal PDA and posterolateral branches. In summary normal coronary arteries. Findings consistent with type 2 PR in the setting of influenza. Medical management advised. Report dictated by MONSERRAT Barnes MD, MD Aug 31, 2024 14:39
[2024-08-31] MEDS ORDERED: METO25 PO (14:43)
[2024-08-31] MEDS ORDERED: ATOR40TA69 PO (14:43)
[2024-08-31] MEDS ORDERED: CLOP-31 PO (14:43)
[2024-08-31] MEDS ORDERED: ASPI-1005 PO (14:43)
[2024-08-31] MEDS: BETAMETHASONE DIP TP SCH (15:00)
[2024-08-31] MEDS: CLOTRIMAZOLE TP SCH (15:00)
--- NOTE | 2024-08-31 19:20 | PN ---
SUBJECTIVE: The patient is examined at bedside. Denied any fever, chills or seizures. No chest pain or palpitations. No nausea or vomiting. She is complaining of bilateral inguinal area erythema and pruritus. OBJECTIVE: GENERAL: Otherwise, she is awake, alert, oriented in person, time and place. VITAL SIGNS: Blood pressure 114/69, pulse 58, respiratory rate 20. HEENT: Normocephalic, atraumatic. LUNGS: Clear to auscultation. HEART: S1, S2 are distant. ABDOMEN: Soft, nontender. EXTREMITIES: No clubbing, cyanosis. SKIN: Bilateral inguinal area with erythema, edema and scratching lesions, especially on the left side. LABORATORY DATA: WBC count 6.9, hemoglobin 12.6, platelets 297. Sodium 137, potassium 3.7, BUN 26, creatinine 1. ASSESSMENT AND PLAN: * Influenza. Continue Tamiflu. * Chronic obstructive pulmonary disease exacerbation. Continue bronchodilators, steroids, antibiotics, improving. * Non-ST elevation myocardial infarction. Pending catheterization later today. * Hypertension, controlled. Continue current medications. * Dyslipidemia. Continue current treatment. * Urinary tract infection. Continue antibiotics. Plan to discharge when cleared by Cardiology. DOS: 08/31/2024 TID: [id number] RECEIPT: [id number] MTDD
[2024-08-31] MEDS: busPIRone HCL 5 MG TABLET PO PRN (21:41)
[2024-09-01 00:34] VITALS: BP 110/60; PULSE 61; RESP 18; TEMP 98.5
[2024-09-01 04:42] VITALS: BP 121/55; PULSE 60; RESP 18; TEMP 98.7
[2024-09-01 08:00] VITALS: O2SAT 98
[2024-09-01 08:16] VITALS: PULSE 57; RESP 16; O2SAT 96
[2024-09-01 08:54] VITALS: BP 124/69; PULSE 62; RESP 16; TEMP 98
[2024-09-01] MEDS ORDERED: BETAMETHASONE DIP TP SCH (09:00)
[2024-09-01] MEDS ORDERED: CLOTRIMAZOLE TP SCH (09:00)
[2024-09-01 12:23] VITALS: BP 104/73; PULSE 58; RESP 16; TEMP 98.8
--- NOTE | 2024-09-01 13:43 | NUR ---
DISCHARGE INSTRUCTIONS DISCHARGE INSTRUCTIONS WERE GIVEN TO THIS PATIENT AND SHE WAS IN AGREEMENT TO ATTEND FOLLOW UP APPOINTMENTS WITH DR. TRUONG AND DR. VINCENT. DATE AND TIME WERE PROVIDED. EDUCATION WAS PROVIDED ON NEW MEDICATIONS AND SHE VOICED UNDERSTANDING. PIV TO LEFT FOREARM WAS REMOVED WITH CATHETER INTACT. DRY DRESSING WAS APPLIED. ALL BELONGINGS WERE ACCOUNTED AND TAKEN WITH. TELE TAE WAS REMOVED AND RETURNED TO TELEMETRY ROOM. PATIENT WAS TAKEN DOWN TO PRIVATE VEHICLE VIA WHEELCHAIR.
== END 2024-09-01 13:50 | disposition home or self-care (01) | DRG 152 ==
LOC: EDH 21:57 → EDBD 21:57 → EDHIP 08-29 00:43 → 2AH 08-29 04:50
PROVIDERS: ADMIT Internal Medicine; ATTEND Internal Medicine
PROC: 4A023N7 Measurement of Cardiac Sampling and Pressure, Left Heart, Percutaneous Approach (ICD-10-PCS; principal; 2024-08-31)
PROC: B2111ZZ Fluoroscopy of Multiple Coronary Arteries using Low Osmolar Contrast (ICD-10-PCS; 2024-08-31)
DX: J11.1 Influenza due to unidentified influenza virus with other respiratory manifestations (principal); I21.A1 Myocardial infarction type 2; J44.1 Chronic obstructive pulmonary disease with (acute) exacerbation; N39.0 Urinary tract infection, site not specified; E11.9 Type 2 diabetes mellitus without complications; I10 Essential (primary) hypertension; E78.00 Pure hypercholesterolemia, unspecified; Z82.49 Family history of ischemic heart disease and other diseases of the circulatory system; Z82.3 Family history of stroke; Z85.41 Personal history of malignant neoplasm of cervix uteri; Z90.710 Acquired absence of both cervix and uterus; Z90.49 Acquired absence of other specified parts of digestive tract
CPT/HCPCS: 36415; 71045; 80048; 80053; 80305; 81001; 82550; 82948; 83735; 83880; 84484; 85025; 85027; 85610; 85730; 87086; 93005; 93306; 93356; 93458; 94640; 94664; 99156; 99157; 99291; C1760; C1894; G0378; J0696; J1644; J1650; J2250; J2405; J2919; J3010; J3490; J7120; Q9967; Q9965